=== PATIENT | female | born 1955 | race Caucasian/White ===

== ENCOUNTER → 2016-06-01 | Outpatient (CLI) | payer OTHER ==
[~2016-06-01] VITALS: Ht 172.7 cm; Wt 69.5 kg
[~2016-06-01] MED LIST: BENADRYL25 MG PO; CALCIUM 500 MG1 EACH PO; FLONASE16 G1 BOTH NARES; ONE DAILY COMP1 EACH PO; SINGULAIR10 MG PO; SYNTHROID125 MCG PO; TRAZODONE HCL50 MG PO; VITAMIN D31000 UNI2 PO
[2016-06-01 07:28] VITALS: BP 137/67
== END | disposition home or self-care (01) ==
LOC: IVINF 04-13 15:00
PROVIDERS: Internal Medicine Endocrinology, Diabetes & Metabolism
DX: R53.83 Other fatigue (principal); L65.9 Nonscarring hair loss, unspecified
CPT/HCPCS: 80400; 82024 90; 82533 91; 96374 59; J0834